=== PATIENT | female | born 1940 | race Asian ===

== ENCOUNTER 2019-02-28 15:18 | Inpatient (IN) | payer MEDICARE, OTHER ==
[2019-02-28] MEDS ORDERED: Acetaminophen 500 MG TAB PO PRN (22:16)
--- NOTE | 2019-03-01 07:23 | Psychiatric Evaluation ---
DATE OF SERVICE: 02/28/2019 PSYCHIATRIC INITIAL EVALUATION AND MENTAL STATUS EXAM AGE: 78. SEX: Female. PHYSICIAN: Dr. Cabrera. CHIEF COMPLAINT: Aggressive behavior and hallucinations. HISTORY OF PRESENT ILLNESS: The patient is a 78-year-old female who was admitted under my care in September of this year and has been followed in [facility]. The patient has been extremely agitated and has been verbally abusive to staff and striking out at staff and peers. The patient also has been actively hallucinating and has been hearing voices. Also, patient has not been able to follow directions. The patient was transferred to the hospital. The patient is still agitated and in irritable mood. The patient also has been restless and has been having difficulty following directions because of her paranoia. PAST PSYCHIATRIC HISTORY: The patient has history of dementia and psychosis as well as history of depression. PAST MEDICAL HISTORY: The patient has history of hypertension and hyperlipidemia. SOCIAL HISTORY: The patient lives in [facility]. The patient does not have history of alcohol or any street drug use. ALLERGIES: No known allergies. MENTAL STATUS EXAMINATION: The patient appears her stated age. Anxious. Depressed mood. Angry and irritable. Confused. Disorganized thoughts. Thought processes are circumstantial with flight of ideas. The patient is actively hallucinating and responding to stimuli. The patient did not answer question regarding suicide or homicide. The patient is alert, but seems to be confused and disoriented to time, place and person. Unable to assess the rest of mental status exam because patient is agitated and confused. ASSESSMENT: Unspecified psychosis. SECONDARY DIAGNOSIS: Dementia, moderate to severe, with behavior disturbances and psychotic features. MEDICAL DIAGNOSES: 1. Hyperlipidemia. 2. Hypertension. 3. History of seizure disorder. TREATMENT PLAN: We will monitor patient's behavior and condition closely. We will start individual as well as milieu psychotherapy. We will monitor psychotropic medications. ESTIMATED LENGTH OF STAY: 5-7 days. PATIENT'S STRENGTHS AND WEAKNESSES: The patient's strength is not clear at this time except that she seems to be in relatively fair health. Weakness is her ineffective coping. AFTER DISCHARGE PLAN: Outpatient treatment and followup, will continue as an outpatient. CRITERIA FOR DISCHARGE: The patient will not be psychotic and will stabilize psychotropic medications and will establish outpatient treatment plans. [facility]# [id number]
[2019-03-01] MEDS ORDERED: Multivitamin w/ Minerals Tab PO SCH (09:00)
[2019-03-01] MEDS ORDERED: Levetiracetam 500 mg/5mL 5mL UDSyr *for ORAL USE ONLY PO SCH (09:00)
[2019-03-01] MEDS ORDERED: Acetaminophen 500 MG TAB PO PRN (09:45)
[2019-03-01] MEDS ORDERED: CITALOPRAM 10 MG PO SCH (10:00)
[2019-03-01] MEDS: Multivitamin w/ Minerals Tab PO SCH (10:28)
--- NOTE | 2019-03-01 14:19 | History and Physical ---
History of Present Illness - HPI Chief Complaint: Patient was brought into ER for evaluation due to Hallucinating and Aggressive behavior. HPI: Patient was admitted to [facility] for evaluation due to Hallucinating and Aggressive behavior. Patient has history of Seizure disorder, Dementia, Hypertension and Hyperlipidemia. Patient had a Psych consult and a complete workup was done. Patient was diagnosed with Unspecified psychosis. I will follow, treat and monitor patient. Patient will continue current treatment plan as ordered. 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 GI: Report: No Pertinent Hx Psych: Report: Other ([facility].) Musculoskeletal: Report: Weakness Rheumatologic: Report: No pertinent Hx Renal/: Report: No Pertinent Hx Endocrine: Report: No Pertinent Hx Dermatology: Report: No Pertinent Hx - Past Surgical History Past Surgical History: No pertinent Hx Family Medical History - Family Member Mother History Unknown: Yes Ethnicity: Non- Living Status: Unknown Hx Family Cancer: No Hx Family Coronary Artery Disease: No Hx Family Congestive Heart Failure: No Hx Family Hypertension: No Hx Family Stroke: No Hx Family Diabetes: No Hx Family Seizures: No Hx Family Dementia: No Hx Family AIDS: No Hx Family HIV: No Hx Family COPD: No Hx Family Hepatitis: No Hx Family Psychiatric Problems: No Hx Family Tuberculosis: No Social History Smoke: No Alcohol: None Drugs: None Lives: Custodial Domestic Violence: Negative Health Maintenance Health Maintenance: Other (please see chart.) - Medications Home Medications: Home Medication Medication Instructions Recorded Type Acetaminophen [Tylenol Extra 500 mg PO Q4H PRN tab 10/04/18 Rx Strength] Atorvastatin Calcium [Lipitor] 40 mg PO HS tab 10/04/18 Rx Citalopram Hydrobromide [celeXA] 10 mg PO DAILY tab 10/04/18 Rx Donepezil Hcl [Aricept] 10 mg PO HS tab 10/04/18 Rx Levetiracetam [Keppra*] 500 mg PO BID udc 10/04/18 Rx Memantine [Namenda] 5 mg PO DAILY tab 10/04/18 Rx QUEtiapine Fumarate [SEROquel] 200 mg PO HS tab 10/04/18 Rx amLODIPine Besylate [Norvasc*] 10 mg PO DAILY tab 10/04/18 Rx Multivitamin with Minerals 1 tab PO DAILY 02/28/19 History [Multivitamins with Minerals] QUEtiapine Fumarate [SEROquel] 75 mg PO BID 02/28/19 History Other Medications: Please see medication reconciliation sheet. - Allergies Allergies/Adverse Reactions: Allergies Allergy/AdvReac Type Severity Reaction Status Date / Time No Known Allergies Allergy Verified 02/28/19 21:37 Review of Systems - Review of Systems Review of Systems: Patient is very aggressive, delusional, needs close monitoring. Constitutional: Report: No Significant Eyes: Report: No Significant ENT: Report: No Significant Respiratory: Report: No Significant Cardiovascular: Report: No Significant Gastrointestinal: Report: No Significant Genitourinary: Report: No Significant Musculoskeletal: Report: No Significant Skin: Report: No Significant Neurological: Report: Weakness, Confusion, Seizures Physical Exam - Physical Exam HEENT: Report: Ears Nose Throat within normal limits Neck: Report: Within normal limits Cardiovascular Systems: Report: +s1/s2 noted Respiratory: Report: Breath Sounds are within normal limits Abdomen: Report: Non-tender to palpation Back: Report: Inspection of back is within normal limits. Extremities: Report: Non-tender to palpation. Skin: Report: Color of skin is within normal limits Neuro/Psych: Report: Other (Very confused and agitated.) - Lab Results All Lab Results last 24 hours: Please see results - Assessment Assessment: Unspecified psychosis. history of Seizure disorder. Dementia. Hypertension. History of Hyperlipidemia. - Plan Plan: Psych management as per Psych. Continue present meds as directed. Monitor diet and nutritional support. Supportive care. Monitor vitals and labs. Continue current treatment plan as ordered.
[2019-03-02] MEDS: Multivitamin w/ Minerals Tab PO SCH (09:36)
[2019-03-02] MEDS: CITALOPRAM 10 MG PO SCH (09:37)
--- NOTE | 2019-03-02 13:30 | Internal Medicine Prog Note ---
Internal Medicine Subjective - Subjective Service Date: 03/02/19 Patient seen and examined:: with staff Patient is:: awake Internal Medicine Objective - Physical Exam Vitals and I&O: Vital Signs Temp 97.2 F 03/02/19 07:03 Pulse 64 03/02/19 09:37 Resp 18 03/02/19 07:03 BP 135/71 03/02/19 09:37 Pulse Ox 96 03/02/19 07:03 Intake & Output 03/01/19 03/02/19 03/02/19 18:59 06:59 18:59 Intake Total 120 120 Balance 120 120 Weight (lbs) 114 lb Intake: Oral 120 120 Other: # Voids 2 2 2 # Bowel Movements 0 0 0 Active Medications: Current Medications Acetaminophen (Tylenol Extra Strength) 500 mg PO Q4H PRN PRN Reason: Severe Pain (Scale 7-10) Stop: 04/30/19 09:44 Amlodipine Besylate (Norvasc) 10 mg PO DAILY [facility] Stop: 04/30/19 09:59 Last Admin: 03/02/19 09:37 Dose: 10 mg Atorvastatin Calcium (Lipitor) 40 mg PO HS [facility]; Protocol Stop: 04/30/19 20:59 Last Admin: 03/01/19 20:37 Dose: 40 mg Donepezil HCl (Aricept) 10 mg PO [facility] Stop: 04/30/19 20:59 Last Admin: 03/01/19 20:38 Dose: 10 mg Levetiracetam (Keppra) 500 mg PO BID [facility] Stop: 04/30/19 09:59 Last Admin: 03/02/19 09:36 Dose: 500 mg Lorazepam (Ativan) 0.5 mg PO Q4H PRN PRN Reason: Anxiety Stop: 04/30/19 09:50 Memantine (Namenda) 5 mg PO DAILY [facility] Stop: 04/30/19 09:59 Last Admin: 03/02/19 09:36 Dose: 5 mg Miscellaneous (Misc Oral Tab) 1 tab PO DAILY [facility] Stop: 05/01/19 08:59 Last Admin: 03/02/19 09:37 Dose: 1 tab Quetiapine Fumarate (Seroquel) 100 mg PO BID [facility] Stop: 04/30/19 09:59 Last Admin: 03/02/19 09:36 Dose: 100 mg Quetiapine Fumarate (Seroquel) 200 mg PO HS [facility] Stop: 04/30/19 20:59 Last Admin: 03/01/19 20:38 Dose: 200 mg Zolpidem Tartrate (Ambien) 5 mg PO HS PRN PRN Reason: Insomnia Stop: 04/30/19 09:52 Last Admin: 03/01/19 20:38 Dose: 5 mg General: alert HEENT: NC/AT, PERRLA Neck: Supple Lungs: CTAB Cardiovascular: RRR, Normal S1, Normal S2, without murmur Abdomen: soft, non-tender, non-distended, positive bowel sound Extremities: excoriation Neurological: no change Internal Medicine Assmt/Plan - Assessment Assessment: Unspecified psychosis. history of Seizure disorder. Dementia. Hypertension. History of Hyperlipidemia. - Plan Plan: Psych management as per Psych. Continue present meds as directed. Monitor diet and nutritional support. Supportive care. Monitor vitals and labs. Continue current treatment plan as ordered.
--- NOTE | 2019-03-03 08:02 | Progress Notes ---
DATE: SUBJECTIVE: Chart was reviewed and the patient interviewed. Also discussed the patient's condition with the staff and reviewed records and labs. The patient continued to be confused and still forgetful. The patient also is still easily agitated and is still having episodes of irritability. She also forgetful and needs lots of redirections. The patient also during interview was sleeping with her sunglasses. Otherwise, the patient is compliant with taking her medications with no side effects of medications. ASSESSMENT: The patient is still confused and agitated. TREATMENT PLAN: Continue current treatment and medications and monitoring her behavior and continue to follow up. JOB# [id number]
[2019-03-03] MEDS: Multivitamin w/ Minerals Tab PO SCH (08:50)
[2019-03-03] MEDS: CITALOPRAM 10 MG PO SCH (08:50)
--- NOTE | 2019-03-03 10:54 | Internal Medicine Prog Note ---
Internal Medicine Subjective - Subjective Service Date: 03/03/19 Patient seen and examined:: with staff Patient is:: awake, verbal, agitated, confused Patient Complaints of:: other (Hx of Seizures.) Per staff patient has:: no adverse event, no episodes of fall Internal Medicine Objective - Physical Exam Vitals and I&O: Vital Signs Temp 97 F 03/03/19 06:36 Pulse 70 03/03/19 08:50 Resp 19 03/03/19 06:36 BP 127/77 03/03/19 08:50 Pulse Ox 98 03/03/19 06:36 Intake & Output 03/02/19 03/03/19 03/03/19 18:59 06:59 18:59 Intake Total 1320 120 Balance 1320 120 Intake: Oral 960 120 Other 360 Other: # Voids 3 2 # Bowel Movements 0 Active Medications: Current Medications Acetaminophen (Tylenol Extra Strength) 500 mg PO Q4H PRN PRN Reason: Severe Pain (Scale 7-10) Stop: 04/30/19 09:44 Amlodipine Besylate (Norvasc) 10 mg PO DAILY [facility] Stop: 04/30/19 09:59 Last Admin: 03/03/19 08:50 Dose: 10 mg Atorvastatin Calcium (Lipitor) [address] [facility]; Protocol Stop: 04/30/19 20:59 Last Admin: 03/02/19 20:42 Dose: 40 mg Donepezil HCl (Aricept) [address] [facility] Stop: 04/30/19 20:59 Last Admin: 03/02/19 20:43 Dose: 10 mg Levetiracetam (Keppra) 500 mg PO BID [facility] Stop: 04/30/19 09:59 Last Admin: 03/03/19 08:50 Dose: 500 mg Lorazepam (Ativan) 0.5 mg PO Q4H PRN PRN Reason: Anxiety Stop: 04/30/19 09:50 Memantine (Namenda) 5 mg PO DAILY [facility] Stop: 04/30/19 09:59 Last Admin: 03/03/19 08:49 Dose: 5 mg Miscellaneous (Misc Oral Tab) 1 tab PO DAILY [facility] Stop: 05/01/19 08:59 Last Admin: 03/03/19 08:50 Dose: 1 tab Quetiapine Fumarate (Seroquel) 100 mg PO BID [facility] Stop: 04/30/19 09:59 Last Admin: 03/03/19 08:50 Dose: 100 mg Quetiapine Fumarate (Seroquel) 200 mg PO HS [facility] Stop: 04/30/19 20:59 Last Admin: 03/02/19 20:44 Dose: 200 mg Zolpidem Tartrate (Ambien) 5 mg PO HS PRN PRN Reason: Insomnia Stop: 04/30/19 09:52 Last Admin: 03/02/19 20:44 Dose: 5 mg Physical Exam: Patient needs close monitoring, very aggressive and agitated, no new events reported. General: alert HEENT: NC/AT, PERRLA Neck: Supple Lungs: CTAB Cardiovascular: RRR, Normal S1, Normal S2, without murmur Abdomen: soft, non-tender, non-distended, positive bowel sound Extremities: excoriation Neurological: no change Internal Medicine Assmt/Plan - Assessment Assessment: Unspecified psychosis. history of Seizure disorder. Dementia. Hypertension. History of Hyperlipidemia. - Plan Plan: Psych management as per Psych. Continue present meds as directed. Monitor diet and nutritional support. Supportive care. Monitor vitals and labs. Continue current treatment plan as ordered.
--- NOTE | 2019-03-03 22:03 | Progress Notes ---
DATE: SUBJECTIVE: Chart was reviewed and the patient interviewed. Also discussed the patient's condition with the staff and reviewed records and labs. The patient is still confused and the patient is still interacting minimally with others. The patient also is still actively hallucinating and is still actively responding to stimuli. Also, easily agitated and easily irritable. The patient also is still forgetful and she still needs lots of redirections. On the other hand, the patient slept better and she is more cooperative with care. ASSESSMENT: The patient is still agitated and psychotic. TREATMENT PLAN: Continue to monitor her behavior and her condition closely. Also, continue adjusting psychotropic medications and work on behavioral modification. JOB# [id number]
[2019-03-04] MEDS: Multivitamin w/ Minerals Tab PO SCH (08:40)
--- NOTE | 2019-03-04 09:50 | Progress Notes ---
DATE: 03/04/2019 SUBJECTIVE: The patient was seen in her room. The patient is asleep, but easily arousable. The patient is very confused, easily gets frustrated and needs a lot of redirection, has episodes of behavioral outbursts. Otherwise, the patient is in no acute distress. OBJECTIVE: VITAL SIGNS: Temperature ____, heart rate 74, blood pressure 113/68, respirations 20, 97% on room air. HEENT: Head is atraumatic and normocephalic. Eyes: Bilateral conjunctivae are clear. Bilateral pupils are equal, round, reactive. NECK: Supple. No JVD. CARDIOVASCULAR: S1 and S2, without murmur. PULMONARY: Clear to auscultation. GASTROINTESTINAL: Soft and nontender without guarding. Positive bowel sounds. MUSCULOSKELETAL: No clubbing. No cyanosis noted. ASSESSMENT: 1. Dementia. 2. Hypertension. 3. Hyperlipidemia. 4. Seizure disorder. PLAN: We will keep the patient to Inpatient Psychiatric Unit. We will follow up with a psychiatrist to monitor the patient's condition and behavior. Put the patient on fall precaution. Treatment plans were discussed with the patient's nurse. Treatment plans were discussed with Dr. Conner. JOB# [id number]
[2019-03-04] MEDS: CITALOPRAM 10 MG PO SCH (10:15)
--- NOTE | 2019-03-04 19:58 | Progress Notes ---
DATE: SUBJECTIVE: Chart was reviewed and the patient interviewed. Also discussed the patient's condition with the staff and reviewed records and labs. The patient is still confused and is still forgetful. The patient also is still easily irritable and is still easily agitated. She also is still actively hallucinating and is talking to herself in Tagalog language. She also is still having mood swings and still needs lots of redirections. Otherwise, the patient continued to comply with taking her medications with no side effects of medications. ASSESSMENT: The patient is still psychotic and agitated. TREATMENT PLAN: We will continue Seroquel and Aricept at the same dose, but would increase Namenda to 5 mg twice a day and we will continue to follow up her behavior and her condition closely. JOB# [id number]
[2019-03-05] MEDS: Multivitamin w/ Minerals Tab PO SCH (08:27)
[2019-03-05] MEDS: CITALOPRAM 10 MG PO SCH (08:27)
--- NOTE | 2019-03-05 11:31 | Internal Medicine Prog Note ---
Internal Medicine Subjective - Subjective Patient is:: awake, in bed, agitated, confused Patient Complaints of:: other (Hx of Seizures.) Per staff patient has:: no adverse event, no episodes of fall Internal Medicine Objective - Physical Exam Vitals and I&O: Vital Signs Temp 97.6 F 03/05/19 06:11 Pulse 67 03/05/19 06:11 Resp 18 03/05/19 06:11 BP 105/62 03/05/19 06:11 Pulse Ox 94 03/05/19 06:11 Intake & Output 03/04/19 03/05/19 03/05/19 18:59 06:59 18:59 Intake Total 850 240 Balance 850 240 Intake: Oral 850 240 Other: # Voids 3 1 # Bowel Movements 1 Active Medications: Current Medications Acetaminophen (Tylenol Extra Strength) 500 mg PO Q4H PRN PRN Reason: Severe Pain (Scale 7-10) Stop: 04/30/19 09:44 Amlodipine Besylate (Norvasc) 10 mg PO DAILY [facility] Stop: 04/30/19 09:59 Last Admin: 03/05/19 08:28 Dose: Not Given Atorvastatin Calcium (Lipitor) 40 mg PO [facility]; Protocol Stop: 04/30/19 20:59 Last Admin: 03/04/19 20:44 Dose: 40 mg Donepezil HCl (Aricept) 10 mg PO [facility] Stop: 04/30/19 20:59 Last Admin: 03/04/19 20:44 Dose: 10 mg Levetiracetam (Keppra) 500 mg PO BID [facility] Stop: 04/30/19 09:59 Last Admin: 03/05/19 08:27 Dose: 500 mg Lorazepam (Ativan) 0.5 mg PO Q4H PRN PRN Reason: Anxiety Stop: 04/30/19 09:50 Memantine (Namenda) 5 mg PO BID [facility] Stop: 05/03/19 08:59 Last Admin: 03/05/19 08:27 Dose: 5 mg Miscellaneous (Misc Oral Tab) 1 tab PO DAILY [facility] Stop: 05/01/19 08:59 Last Admin: 03/05/19 08:27 Dose: 1 tab Quetiapine Fumarate (Seroquel) 100 mg PO BID [facility] Stop: 04/30/19 09:59 Last Admin: 03/05/19 08:27 Dose: 100 mg Quetiapine Fumarate (Seroquel) 200 mg PO HS [facility] Stop: 04/30/19 20:59 Last Admin: 03/04/19 20:44 Dose: 200 mg Zolpidem Tartrate (Ambien) 5 mg PO HS PRN PRN Reason: Insomnia Stop: 04/30/19 09:52 Last Admin: 03/02/19 20:44 Dose: 5 mg General: demented, NAD HEENT: NC/AT, PERRLA Neck: Supple, No JVD Lungs: other (no acute respiratory distress) Cardiovascular: RRR Abdomen: soft, non-tender, non-distended Extremities: excoriation Neurological: no change Internal Medicine Assmt/Plan - Assessment Assessment: Dementia Seizure disorder HTN Hyperlipidemia - Plan Plan: Continue current treatment plan. Monitor Labs. Continue current medications Continue to monitor VS Monitor Diet/Nutritional support. Psych management per Psychiatry. Pain Management. PT/OT prn Safety precaution, Fall precaution, frequent nursing round. Supportive care. Continue collaborating with consulting specialists, case management and nursing team Nutritional Asmnt/Malnutr-PDOC - Dietary Evaluation Malnutrition Findings (Please click <Entered> for more info): Nutritional Asmnt/Malnutrition Start: 03/04/19 09: 31 Text: Status: Complete Freq: Protocol: Document 03/04/19 09:32 JULIANNA (Rec: 03/04/19 10:03 JULIANNA RUSSELL- [id number]) Nutritional Asmnt/Malnutrition Patient General Information Nutritional Screening Low Risk Diagnosis Psychosis Pertinent Medical Hx/Surgical Hx psychosis, non traumatic subdural hemorrhage, seizures, dementia, hypertension, hyperlipidemia, anxiety disorder, schizoaffective disorder, and major depressive disorder. Subjective Information Patient tolerating current diet, no pmhx of diabetes noted. Current Diet Order/ Nutrition Support Soft, 60gm CCHO Patient / S.O Not Indicated Pertinent Medications Lipitor Nutritional Hx/Data Height 4 ft 11 in Height (Calculated Centimeters) 149.9 Current Weight (lbs) 114 lb Weight (Calculated Kilograms) 51.7 Weight (Calculated Grams) 39454.5 [place] Body Weight 97.5 % [place] Body Weight 116 Body Mass Index (BMI) 23.0 Recent Weight Change No Weight Status Approriate GI Symptoms GI Symptoms None Last BM none noted Difficult in: None Food Allergies No Cultural/Ethnic/Church Belief none indicated Usual diet at home unknown Skin Integrity/Comment: Kg Jay Current %PO Fair (50-74%) Estimated Nutritional Goals BEE in Kcals: Using Current wt Calories/Kcals/Kg 51.8kg CBW 25-30 kcal/kg Kcals Calculated ~1869-0930 kcal/day Protein: Using Current wt Protein g/k-1.2gm/kg Protein Calculated 50-60gm/day Fluid: ml ~6877-8460 ml/day Nutritional Problem No current Nutrition Prob Problem no nutritino diagnosis at this time Intervention/Recommendation Comments 1. Continue soft diet as tolerated by patient. 2. No noted hx of diabetes in H&P and no POC glucose levels noted. Consider checking glucose levels to determine need for 60gm CCHO diet. Expected Outcomes/Goals Expected Outcomes/Goals Oral intake 75% of meals, weight stable, nutrition related labs WNL F/U LR 03/11
[2019-03-06] MEDS: CITALOPRAM 10 MG PO SCH (09:22)
[2019-03-06] MEDS: Multivitamin w/ Minerals Tab PO SCH (09:22)
--- NOTE | 2019-03-06 12:48 | Internal Medicine Prog Note ---
Internal Medicine Subjective - Subjective Service Date: 03/06/19 Patient seen and examined:: with staff, chart reviewed Patient is:: awake, in bed, agitated, confused Patient Complaints of:: other (Hx of Seizures.) Per staff patient has:: no adverse event, no episodes of fall, agitated Internal Medicine Objective - Physical Exam Vitals and I&O: Vital Signs Temp 97 F 03/06/19 06:20 Pulse 65 03/06/19 09:23 Resp 19 03/06/19 08:00 BP 118/66 03/06/19 09:23 Pulse Ox 96 03/06/19 06:20 Intake & Output 03/05/19 03/06/19 03/06/19 18:59 06:59 18:59 Intake Total 850 240 Balance 850 240 Intake: Oral 850 240 Other: # Voids 3 2 # Bowel Movements 1 Active Medications: Current Medications Acetaminophen (Tylenol Extra Strength) 500 mg PO Q4H PRN PRN Reason: Severe Pain (Scale 7-10) Stop: 04/30/19 09:44 Amlodipine Besylate (Norvasc) 10 mg PO DAILY [facility] Stop: 04/30/19 09:59 Last Admin: 03/06/19 09:23 Dose: 10 mg Atorvastatin Calcium (Lipitor) 40 mg PO HS [facility]; Protocol Stop: 04/30/19 20:59 Last Admin: 03/05/19 20:32 Dose: 40 mg Donepezil HCl (Aricept) 10 mg PO HS [facility] Stop: 04/30/19 20:59 Last Admin: 03/05/19 20:32 Dose: 10 mg Levetiracetam (Keppra) 500 mg PO BID [facility] Stop: 04/30/19 09:59 Last Admin: 03/06/19 09:23 Dose: 500 mg Lorazepam (Ativan) 0.5 mg PO Q4H PRN PRN Reason: Anxiety Stop: 04/30/19 09:50 Memantine (Namenda) 5 mg PO BID [facility] Stop: 05/03/19 08:59 Last Admin: 03/06/19 09:23 Dose: 5 mg Miscellaneous (Misc Oral Tab) 1 tab PO DAILY [facility] Stop: 05/01/19 08:59 Last Admin: 03/06/19 09:22 Dose: 1 tab Quetiapine Fumarate (Seroquel) 100 mg PO BID [facility] Stop: 04/30/19 09:59 Last Admin: 03/06/19 09:23 Dose: 100 mg Quetiapine Fumarate (Seroquel) 200 mg PO HS [facility] Stop: 04/30/19 20:59 Last Admin: 03/05/19 20:32 Dose: 200 mg Zolpidem Tartrate (Ambien) 5 mg PO HS PRN PRN Reason: Insomnia Stop: 04/30/19 09:52 Last Admin: 03/02/19 20:44 Dose: 5 mg Physical Exam: Patient needs close monitoring, having mood swings, psychotic and agitated. General: demented, NAD HEENT: NC/AT, PERRLA Neck: Supple, No JVD Lungs: other (no acute respiratory distress) Cardiovascular: RRR Abdomen: soft, non-tender, non-distended Extremities: excoriation Neurological: no change Internal Medicine Assmt/Plan - Assessment Assessment: Unspecified psychosis. history of Seizure disorder. Dementia. Hypertension. History of Hyperlipidemia. - Plan Plan: Psych management as per Psych. Continue present meds as directed. Monitor diet and nutritional support. Supportive care. Monitor vitals and labs. Continue current treatment plan as ordered. Nutritional Asmnt/Malnutr-PDOC - Dietary Evaluation Malnutrition Findings (Please click <Entered> for more info): Nutritional Asmnt/Malnutrition Start: 03/04/19 09: 31 Text: Status: Complete Freq: Protocol: Document 03/04/19 09:32 JULIANNA (Rec: 03/04/19 10:03 JULIANNA RUSSELL- FNS1) Nutritional Asmnt/Malnutrition Patient General Information Nutritional Screening Low Risk Diagnosis Psychosis Pertinent Medical Hx/Surgical Hx psychosis, non traumatic subdural hemorrhage, seizures, dementia, hypertension, hyperlipidemia, anxiety disorder, schizoaffective disorder, and major depressive disorder. Subjective Information Patient tolerating current diet, no pmhx of diabetes noted. Current Diet Order/ Nutrition Support Soft, 60gm CCHO Patient / S.O Not Indicated Pertinent Medications Lipitor Nutritional Hx/Data Height 1.5 m Height (Calculated Centimeters) 149.9 Current Weight (lbs) 51.71 kg Weight (Calculated Kilograms) 51.7 Weight (Calculated Grams) 17207.5 [place] Body Weight 97.5 % [place] Body Weight 116 Body Mass Index (BMI) 23.0 Recent Weight Change No Weight Status Approriate GI Symptoms GI Symptoms None Last BM none noted Difficult in: None Food Allergies No Cultural/Ethnic/Faith Belief none indicated Usual diet at home unknown Skin Integrity/Comment: Kg 19 Current %PO Fair (50-74%) Estimated Nutritional Goals BEE in Kcals: Using Current wt Calories/Kcals/Kg 51.8kg CBW 25-30 kcal/kg Kcals Calculated ~3771-8224 kcal/day Protein: Using Current wt Protein g/k-1.2gm/kg Protein Calculated 50-60gm/day Fluid: ml ~5564-3021 ml/day Nutritional Problem No current Nutrition Prob Problem no nutritino diagnosis at this time Intervention/Recommendation Comments 1. Continue soft diet as tolerated by patient. 2. No noted hx of diabetes in H&P and no POC glucose levels noted. Consider checking glucose levels to determine need for 60gm CCHO diet. Expected Outcomes/Goals Expected Outcomes/Goals Oral intake 75% of meals, weight stable, nutrition related labs WNL F/U LR 03/11
[2019-03-07] MEDS: Multivitamin w/ Minerals Tab PO SCH (09:52)
[2019-03-07] MEDS: CITALOPRAM 10 MG PO SCH (09:53)
--- NOTE | 2019-03-08 08:48 | Internal Medicine Prog Note ---
Internal Medicine Subjective - Subjective Patient is:: asleep, in bed, confused Patient Complaints of:: other (Hx of Seizures.) Per staff patient has:: no adverse event, no episodes of fall, agitated Internal Medicine Objective - Physical Exam Vitals and I&O: Vital Signs Temp 97.9 F 03/08/19 05:44 Pulse 68 03/08/19 05:44 Resp 18 03/08/19 05:44 BP 127/72 03/08/19 05:44 Pulse Ox 95 03/08/19 05:44 Intake & Output 03/07/19 03/08/19 03/08/19 18:59 06:59 18:59 Intake Total 120 Balance 120 Intake: Oral 120 Other: # Voids 2 3 # Bowel Movements 0 0 Active Medications: Current Medications Acetaminophen (Tylenol Extra Strength) 500 mg PO Q4H PRN PRN Reason: Severe Pain (Scale 7-10) Stop: 04/30/19 09:44 Amlodipine Besylate (Norvasc) 10 mg PO DAILY [facility] Stop: 04/30/19 09:59 Last Admin: 03/07/19 09:52 Dose: 10 mg Atorvastatin Calcium (Lipitor) 40 mg PO HS [facility]; Protocol Stop: 04/30/19 20:59 Last Admin: 03/07/19 20:40 Dose: 40 mg Donepezil HCl (Aricept) 10 mg PO [facility] Stop: 04/30/19 20:59 Last Admin: 03/07/19 20:40 Dose: 10 mg Levetiracetam (Keppra) 500 mg PO BID [facility] Stop: 04/30/19 09:59 Last Admin: 03/07/19 17:20 Dose: 500 mg Lorazepam (Ativan) 0.5 mg PO Q4H PRN PRN Reason: Anxiety Stop: 04/30/19 09:50 Last Admin: 03/08/19 03:14 Dose: 0.5 mg Memantine (Namenda) 10 mg PO BID [facility] Stop: 05/06/19 08:59 Last Admin: 03/07/19 17:20 Dose: 10 mg Miscellaneous (Misc Oral Tab) 1 tab PO DAILY [facility] Stop: 05/01/19 08:59 Last Admin: 03/07/19 09:53 Dose: 1 tab Quetiapine Fumarate (Seroquel) 200 mg PO [facility] Stop: 04/30/19 20:59 Last Admin: 03/07/19 20:40 Dose: 200 mg Quetiapine Fumarate 100 mg/ (Quetiapine Fumarate 25 mg) 125 mg PO BID [facility] Stop: 05/06/19 08:59 Last Admin: 03/07/19 17:21 Dose: 125 mg Zolpidem Tartrate (Ambien) 5 mg PO HS PRN PRN Reason: Insomnia Stop: 04/30/19 09:52 Last Admin: 03/07/19 20:41 Dose: 5 mg General: demented, NAD HEENT: NC/AT, PERRLA Neck: Supple, No JVD Lungs: other (no acute respiratory distress) Cardiovascular: RRR Abdomen: soft, non-tender, non-distended Extremities: excoriation Neurological: no change Internal Medicine Assmt/Plan - Assessment Assessment: Dementia Unspecified psychosis. Seizure disorder HTN Hyperlipidemia - Plan Plan: Continue current treatment plan. Monitor Labs. Continue current medications Continue to monitor VS Monitor Diet/Nutritional support. Psych management per Psychiatry. Pain Management. PT/OT prn Safety precaution, Fall precaution, frequent nursing round. Supportive care. Continue collaborating with consulting specialists, case management and nursing team Nutritional Asmnt/Malnutr-PDOC - Dietary Evaluation Malnutrition Findings (Please click <Entered> for more info): Nutritional Asmnt/Malnutrition Start: 03/04/19 09: 31 Text: Status: Complete Freq: Protocol: Document 03/04/19 09:32 JULIANNA (Rec: 03/04/19 10:03 JULIANNA RUSSELL- FNS1) Nutritional Asmnt/Malnutrition Patient General Information Nutritional Screening Low Risk Diagnosis Psychosis Pertinent Medical Hx/Surgical Hx psychosis, non traumatic subdural hemorrhage, seizures, dementia, hypertension, hyperlipidemia, anxiety disorder, schizoaffective disorder, and major depressive disorder. Subjective Information Patient tolerating current diet, no pmhx of diabetes noted. Current Diet Order/ Nutrition Support Soft, 60gm CCHO Patient / S.O Not Indicated Pertinent Medications Lipitor Nutritional Hx/Data Height 4 ft 11 in Height (Calculated Centimeters) 149.9 Current Weight (lbs) 114 lb Weight (Calculated Kilograms) 51.7 Weight (Calculated Grams) 64536.5 [place] Body Weight 97.5 % [place] Body Weight 116 Body Mass Index (BMI) 23.0 Recent Weight Change No Weight Status Approriate GI Symptoms GI Symptoms None Last BM none noted Difficult in: None Food Allergies No Cultural/Ethnic/Nondenominational Belief none indicated Usual diet at home unknown Skin Integrity/Comment: Kg 19 Current %PO Fair (50-74%) Estimated Nutritional Goals BEE in Kcals: Using Current wt Calories/Kcals/Kg 51.8kg CBW 25-30 kcal/kg Kcals Calculated ~9508-4281 kcal/day Protein: Using Current wt Protein g/k-1.2gm/kg Protein Calculated 50-60gm/day Fluid: ml ~0539-5738 ml/day Nutritional Problem No current Nutrition Prob Problem no nutritino diagnosis at this time Intervention/Recommendation Comments 1. Continue soft diet as tolerated by patient. 2. No noted hx of diabetes in H&P and no POC glucose levels noted. Consider checking glucose levels to determine need for 60gm CCHO diet. Expected Outcomes/Goals Expected Outcomes/Goals Oral intake 75% of meals, weight stable, nutrition related labs WNL F/U LR 03/11
[2019-03-08] MEDS: CITALOPRAM 10 MG PO SCH (09:06)
[2019-03-08] MEDS: Multivitamin w/ Minerals Tab PO SCH (09:06)
--- NOTE | 2019-03-08 13:56 | Internal Medicine Prog Note ---
Internal Medicine Subjective - Subjective Service Date: 03/08/19 Patient seen and examined:: with staff Patient is:: asleep, in bed, confused Patient Complaints of:: other (Hx of Seizures.) Per staff patient has:: no adverse event, no episodes of fall, agitated Internal Medicine Objective - Physical Exam Vitals and I&O: Vital Signs Temp 97.9 F 03/08/19 05:44 Pulse 68 03/08/19 09:06 Resp 17 03/08/19 08:00 BP 127/72 03/08/19 09:06 Pulse Ox 95 03/08/19 05:44 Intake & Output 03/07/19 03/08/19 03/08/19 18:59 06:59 18:59 Intake Total 120 Balance 120 Intake: Oral 120 Other: # Voids 2 3 # Bowel Movements 0 0 Active Medications: Current Medications Acetaminophen (Tylenol Extra Strength) 500 mg PO Q4H PRN PRN Reason: Severe Pain (Scale 7-10) Stop: 04/30/19 09:44 Amlodipine Besylate (Norvasc) 10 mg PO DAILY [facility] Stop: 04/30/19 09:59 Last Admin: 03/08/19 09:06 Dose: 10 mg Atorvastatin Calcium (Lipitor) 40 mg PO HS [facility]; Protocol Stop: 04/30/19 20:59 Last Admin: 03/07/19 20:40 Dose: 40 mg Donepezil HCl (Aricept) 10 mg PO HS [facility] Stop: 04/30/19 20:59 Last Admin: 03/07/19 20:40 Dose: 10 mg Levetiracetam (Keppra) 500 mg PO BID [facility] Stop: 04/30/19 09:59 Last Admin: 03/08/19 09:06 Dose: 500 mg Lorazepam (Ativan) 0.5 mg PO Q4H PRN PRN Reason: Anxiety Stop: 04/30/19 09:50 Last Admin: 03/08/19 03:14 Dose: 0.5 mg Memantine (Namenda) 10 mg PO BID [facility] Stop: 05/06/19 08:59 Last Admin: 03/08/19 09:05 Dose: 10 mg Miscellaneous (Misc Oral Tab) 1 tab PO DAILY [facility] Stop: 05/01/19 08:59 Last Admin: 03/08/19 09:06 Dose: 1 tab Quetiapine Fumarate (Seroquel) 200 mg PO HS [facility] Stop: 04/30/19 20:59 Last Admin: 03/07/19 20:40 Dose: 200 mg Quetiapine Fumarate 100 mg/ (Quetiapine Fumarate 25 mg) 125 mg PO BID [facility] Stop: 05/06/19 08:59 Last Admin: 03/08/19 09:06 Dose: 125 mg Zolpidem Tartrate (Ambien) 5 mg PO HS PRN PRN Reason: Insomnia Stop: 04/30/19 09:52 Last Admin: 03/07/19 20:41 Dose: 5 mg Physical Exam: Patient needs close monitoring, easily frustrated and agitated. General: demented, NAD HEENT: NC/AT, PERRLA Neck: Supple, No JVD Lungs: other (no acute respiratory distress) Cardiovascular: RRR Abdomen: soft, non-tender, non-distended Extremities: excoriation Neurological: no change Internal Medicine Assmt/Plan - Assessment Assessment: Unspecified psychosis. history of Seizure disorder. Dementia. Hypertension. History of Hyperlipidemia. - Plan Plan: Psych management as per Psych. Continue present meds as directed. Monitor diet and nutritional support. Supportive care. Monitor vitals and labs. Continue current treatment plan as ordered. Nutritional Asmnt/Malnutr-PDOC - Dietary Evaluation Malnutrition Findings (Please click <Entered> for more info): Nutritional Asmnt/Malnutrition Start: 03/04/19 09: 31 Text: Status: Complete Freq: Protocol: Document 03/04/19 09:32 JULIANNA (Rec: 03/04/19 10:03 JULIANNA RUSSELL- FNS1) Nutritional Asmnt/Malnutrition Patient General Information Nutritional Screening Low Risk Diagnosis Psychosis Pertinent Medical Hx/Surgical Hx psychosis, non traumatic subdural hemorrhage, seizures, dementia, hypertension, hyperlipidemia, anxiety disorder, schizoaffective disorder, and major depressive disorder. Subjective Information Patient tolerating current diet, no pmhx of diabetes noted. Current Diet Order/ Nutrition Support Soft, 60gm CCHO Patient / S.O Not Indicated Pertinent Medications Lipitor Nutritional Hx/Data Height 1.5 m Height (Calculated Centimeters) 149.9 Current Weight (lbs) 51.71 kg Weight (Calculated Kilograms) 51.7 Weight (Calculated Grams) 75560.5 [place] Body Weight 97.5 % [place] Body Weight 116 Body Mass Index (BMI) 23.0 Recent Weight Change No Weight Status Approriate GI Symptoms GI Symptoms None Last BM none noted Difficult in: None Food Allergies No Cultural/Ethnic/Tenriism Belief none indicated Usual diet at home unknown Skin Integrity/Comment: Kg 19 Current %PO Fair (50-74%) Estimated Nutritional Goals BEE in Kcals: Using Current wt Calories/Kcals/Kg 51.8kg CBW 25-30 kcal/kg Kcals Calculated ~8212-9274 kcal/day Protein: Using Current wt Protein g/k-1.2gm/kg Protein Calculated 50-60gm/day Fluid: ml ~2869-2033 ml/day Nutritional Problem No current Nutrition Prob Problem no nutritino diagnosis at this time Intervention/Recommendation Comments 1. Continue soft diet as tolerated by patient. 2. No noted hx of diabetes in H&P and no POC glucose levels noted. Consider checking glucose levels to determine need for 60gm CCHO diet. Expected Outcomes/Goals Expected Outcomes/Goals Oral intake 75% of meals, weight stable, nutrition related labs WNL F/U LR 03/11
--- NOTE | 2019-03-08 14:03 | Internal Medicine Prog Note ---
Internal Medicine Subjective - Subjective Service Date: 03/08/19 Patient is:: asleep, in bed, confused Patient Complaints of:: other (Hx of Seizures.) Per staff patient has:: no adverse event, no episodes of fall, agitated Internal Medicine Objective - Physical Exam Vitals and I&O: Vital Signs Temp 97.9 F 03/08/19 05:44 Pulse 68 03/08/19 09:06 Resp 17 03/08/19 08:00 BP 127/72 03/08/19 09:06 Pulse Ox 95 03/08/19 05:44 Intake & Output 03/07/19 03/08/19 03/08/19 18:59 06:59 18:59 Intake Total 120 Balance 120 Intake: Oral 120 Other: # Voids 2 3 # Bowel Movements 0 0 Active Medications: Current Medications Acetaminophen (Tylenol Extra Strength) 500 mg PO Q4H PRN PRN Reason: Severe Pain (Scale 7-10) Stop: 04/30/19 09:44 Amlodipine Besylate (Norvasc) 10 mg PO DAILY [facility] Stop: 04/30/19 09:59 Last Admin: 03/08/19 09:06 Dose: 10 mg Atorvastatin Calcium (Lipitor) 40 mg PO HS [facility]; Protocol Stop: 04/30/19 20:59 Last Admin: 03/07/19 20:40 Dose: 40 mg Donepezil HCl (Aricept) 10 mg PO [facility] Stop: 04/30/19 20:59 Last Admin: 03/07/19 20:40 Dose: 10 mg Levetiracetam (Keppra) 500 mg PO BID [facility] Stop: 04/30/19 09:59 Last Admin: 03/08/19 09:06 Dose: 500 mg Lorazepam (Ativan) 0.5 mg PO Q4H PRN PRN Reason: Anxiety Stop: 04/30/19 09:50 Last Admin: 03/08/19 03:14 Dose: 0.5 mg Memantine (Namenda) 10 mg PO BID [facility] Stop: 05/06/19 08:59 Last Admin: 03/08/19 09:05 Dose: 10 mg Miscellaneous (Misc Oral Tab) 1 tab PO DAILY [facility] Stop: 05/01/19 08:59 Last Admin: 03/08/19 09:06 Dose: 1 tab Quetiapine Fumarate (Seroquel) 200 mg PO HS [facility] Stop: 04/30/19 20:59 Last Admin: 03/07/19 20:40 Dose: 200 mg Quetiapine Fumarate 100 mg/ (Quetiapine Fumarate 25 mg) 125 mg PO BID [facility] Stop: 05/06/19 08:59 Last Admin: 03/08/19 09:06 Dose: 125 mg Zolpidem Tartrate (Ambien) 5 mg PO HS PRN PRN Reason: Insomnia Stop: 04/30/19 09:52 Last Admin: 03/07/19 20:41 Dose: 5 mg General: demented, NAD HEENT: NC/AT, PERRLA Neck: Supple, No JVD Lungs: other (no acute respiratory distress) Cardiovascular: RRR Abdomen: soft, non-tender, non-distended Extremities: excoriation Neurological: no change Internal Medicine Assmt/Plan - Assessment Assessment: Unspecified psychosis. history of Seizure disorder. Dementia. Hypertension. History of Hyperlipidemia. - Plan Plan: Psych management as per Psych. Continue present meds as directed. Monitor diet and nutritional support. Supportive care. Monitor vitals and labs. Continue current treatment plan as ordered. Nutritional Asmnt/Malnutr-PDOC - Dietary Evaluation Malnutrition Findings (Please click <Entered> for more info): Nutritional Asmnt/Malnutrition Start: 03/04/19 09: 31 Text: Status: Complete Freq: Protocol: Document 03/04/19 09:32 JULIANNA (Rec: 03/04/19 10:03 JULIANNA RUSSELL- FNS1) Nutritional Asmnt/Malnutrition Patient General Information Nutritional Screening Low Risk Diagnosis Psychosis Pertinent Medical Hx/Surgical Hx psychosis, non traumatic subdural hemorrhage, seizures, dementia, hypertension, hyperlipidemia, anxiety disorder, schizoaffective disorder, and major depressive disorder. Subjective Information Patient tolerating current diet, no pmhx of diabetes noted. Current Diet Order/ Nutrition Support Soft, 60gm CCHO Patient / S.O Not Indicated Pertinent Medications Lipitor Nutritional Hx/Data Height 4 ft 11 in Height (Calculated Centimeters) 149.9 Current Weight (lbs) 114 lb Weight (Calculated Kilograms) 51.7 Weight (Calculated Grams) 61258.5 [place] Body Weight 97.5 % [place] Body Weight 116 Body Mass Index (BMI) 23.0 Recent Weight Change No Weight Status Approriate GI Symptoms GI Symptoms None Last BM none noted Difficult in: None Food Allergies No Cultural/Ethnic/Yazidi Belief none indicated Usual diet at home unknown Skin Integrity/Comment: Kg [place] Current %PO Fair (50-74%) Estimated Nutritional Goals BEE in Kcals: Using Current wt Calories/Kcals/Kg 51.8kg CBW 25-30 kcal/kg Kcals Calculated ~0858-0266 kcal/day Protein: Using Current wt Protein g/k-1.2gm/kg Protein Calculated 50-60gm/day Fluid: ml ~5798-0717 ml/day Nutritional Problem No current Nutrition Prob Problem no nutritino diagnosis at this time Intervention/Recommendation Comments 1. Continue soft diet as tolerated by patient. 2. No noted hx of diabetes in H&P and no POC glucose levels noted. Consider checking glucose levels to determine need for 60gm CCHO diet. Expected Outcomes/Goals Expected Outcomes/Goals Oral intake 75% of meals, weight stable, nutrition related labs WNL F/U LR 03/11
[2019-03-09] MEDS: CITALOPRAM 10 MG PO SCH (09:35)
[2019-03-09] MEDS: Multivitamin w/ Minerals Tab PO SCH (09:35)
--- NOTE | 2019-03-09 17:54 | Internal Medicine Prog Note ---
Internal Medicine Subjective - Subjective Service Date: 03/09/19 Patient is:: asleep, in bed, confused Patient Complaints of:: other (Hx of Seizures.) Per staff patient has:: no adverse event, no episodes of fall, agitated Internal Medicine Objective - Physical Exam Vitals and I&O: Vital Signs Temp 97.7 F 03/09/19 14:00 Pulse 81 03/09/19 14:00 Resp 20 03/09/19 14:00 BP 95/63 03/09/19 14:00 Pulse Ox 97 03/09/19 14:00 Intake & Output 03/08/19 03/09/19 03/09/19 18:59 06:59 18:59 Intake Total 1200 120 Balance 1200 120 Intake: Oral 1200 120 Other: # Voids 2 # Bowel Movements 1 Active Medications: Current Medications Acetaminophen (Tylenol Extra Strength) 500 mg PO Q4H PRN PRN Reason: Severe Pain (Scale 7-10) Stop: 04/30/19 09:44 Amlodipine Besylate (Norvasc) 10 mg PO DAILY [facility] Stop: 04/30/19 09:59 Last Admin: 03/09/19 09:34 Dose: Not Given Atorvastatin Calcium (Lipitor) 40 mg PO [facility]; Protocol Stop: 04/30/19 20:59 Last Admin: 03/08/19 21:00 Dose: 40 mg Donepezil HCl (Aricept) 10 mg PO [facility] Stop: 04/30/19 20:59 Last Admin: 03/08/19 21:00 Dose: 10 mg Levetiracetam (Keppra) 500 mg PO BID [facility] Stop: 04/30/19 09:59 Last Admin: 03/09/19 16:44 Dose: 500 mg Memantine (Namenda) 10 mg PO BID [facility] Stop: 05/06/19 08:59 Last Admin: 03/09/19 16:44 Dose: 10 mg Miscellaneous (Misc Oral Tab) 1 tab PO DAILY [facility] Stop: 05/01/19 08:59 Last Admin: 03/09/19 09:35 Dose: 1 tab Quetiapine Fumarate (Seroquel) 200 mg PO [facility] Stop: 04/30/19 20:59 Last Admin: 03/08/19 21:00 Dose: 200 mg Quetiapine Fumarate 100 mg/ (Quetiapine Fumarate 25 mg) 125 mg PO BID [facility] Stop: 05/06/19 08:59 Last Admin: 03/09/19 16:44 Dose: 125 mg General: demented, NAD HEENT: NC/AT, PERRLA Neck: Supple, No JVD Lungs: other (no acute respiratory distress) Cardiovascular: RRR Abdomen: soft, non-tender, non-distended Extremities: excoriation Neurological: no change Internal Medicine Assmt/Plan - Assessment Assessment: Unspecified psychosis. history of Seizure disorder. Dementia. Hypertension. History of Hyperlipidemia. - Plan Plan: Psych management as per Psych. Continue present meds as directed. Monitor diet and nutritional support. Supportive care. Monitor vitals and labs. Continue current treatment plan as ordered. Nutritional Asmnt/Malnutr-PDOC - Dietary Evaluation Malnutrition Findings (Please click <Entered> for more info): Nutritional Asmnt/Malnutrition Start: 03/04/19 09: 31 Text: Status: Complete Freq: Protocol: Document 03/04/19 09:32 JULIANNA (Rec: 03/04/19 10:03 JULIANNA RUSSELL- FNS1) Nutritional Asmnt/Malnutrition Patient General Information Nutritional Screening Low Risk Diagnosis Psychosis Pertinent Medical Hx/Surgical Hx psychosis, non traumatic subdural hemorrhage, seizures, dementia, hypertension, hyperlipidemia, anxiety disorder, schizoaffective disorder, and major depressive disorder. Subjective Information Patient tolerating current diet, no pmhx of diabetes noted. Current Diet Order/ Nutrition Support Soft, 60gm CCHO Patient / S.O Not Indicated Pertinent Medications Lipitor Nutritional Hx/Data Height 4 ft 11 in Height (Calculated Centimeters) 149.9 Current Weight (lbs) 114 lb Weight (Calculated Kilograms) 51.7 Weight (Calculated Grams) 76908.5 [place] Body Weight 97.5 % [place] Body Weight 116 Body Mass Index (BMI) 23.0 Recent Weight Change No Weight Status Approriate GI Symptoms GI Symptoms None Last BM none noted Difficult in: None Food Allergies No Cultural/Ethnic/Moravian Belief none indicated Usual diet at home unknown Skin Integrity/Comment: Kg 19 Current %PO Fair (50-74%) Estimated Nutritional Goals BEE in Kcals: Using Current wt Calories/Kcals/Kg 51.8kg CBW 25-30 kcal/kg Kcals Calculated ~7069-9891 kcal/day Protein: Using Current wt Protein g/k-1.2gm/kg Protein Calculated 50-60gm/day Fluid: ml ~3619-4549 ml/day Nutritional Problem No current Nutrition Prob Problem no nutritino diagnosis at this time Intervention/Recommendation Comments 1. Continue soft diet as tolerated by patient. 2. No noted hx of diabetes in H&P and no POC glucose levels noted. Consider checking glucose levels to determine need for 60gm CCHO diet. Expected Outcomes/Goals Expected Outcomes/Goals Oral intake 75% of meals, weight stable, nutrition related labs WNL F/U LR 03/11
[2019-03-10] MEDS: Multivitamin w/ Minerals Tab PO SCH (08:48)
[2019-03-10] MEDS: CITALOPRAM 10 MG PO SCH (08:48)
[2019-03-11] MEDS: CITALOPRAM 10 MG PO SCH (08:33)
[2019-03-11] MEDS: Multivitamin w/ Minerals Tab PO SCH (08:34)
[2019-03-12] MEDS: Multivitamin w/ Minerals Tab PO SCH (08:50)
[2019-03-12] MEDS: CITALOPRAM 10 MG PO SCH (08:50)
--- NOTE | 2019-03-12 11:48 | Internal Medicine Prog Note ---
Internal Medicine Subjective - Subjective Patient is:: asleep, in bed, confused Patient Complaints of:: other (Hx of Seizures.) Per staff patient has:: no adverse event, no episodes of fall Internal Medicine Objective - Physical Exam Vitals and I&O: Vital Signs Temp 97.1 F 03/12/19 06:33 Pulse 68 03/12/19 08:48 Resp 19 03/12/19 06:33 BP 107/64 03/12/19 08:48 Pulse Ox 97 03/12/19 06:33 Intake & Output 03/11/19 03/12/19 03/12/19 18:59 06:59 18:59 Intake Total 800 360 Balance 800 360 Intake: Oral 800 360 Other: # Voids 3 1 # Bowel Movements 1 Active Medications: Current Medications Acetaminophen (Tylenol Extra Strength) 500 mg PO Q4H PRN PRN Reason: Severe Pain (Scale 7-10) Stop: 04/30/19 09:44 Amlodipine Besylate (Norvasc) 10 mg PO DAILY [facility] Stop: 04/30/19 09:59 Last Admin: 03/12/19 08:48 Dose: Not Given Atorvastatin Calcium (Lipitor) 40 mg PO HS [facility]; Protocol Stop: 04/30/19 20:59 Last Admin: 03/11/19 21:25 Dose: 40 mg Donepezil HCl (Aricept) 10 mg PO [facility] Stop: 04/30/19 20:59 Last Admin: 03/11/19 21:25 Dose: 10 mg Levetiracetam (Keppra) 500 mg PO BID [facility] Stop: 04/30/19 09:59 Last Admin: 03/12/19 08:50 Dose: 500 mg Lorazepam (Ativan) 0.5 mg PO Q4H PRN; Protocol PRN Reason: Anxiety Stop: 05/08/19 19:48 Memantine (Namenda) 10 mg PO BID [facility] Stop: 05/06/19 08:59 Last Admin: 03/12/19 08:50 Dose: 10 mg Miscellaneous (Misc Oral Tab) 1 tab PO DAILY [facility] Stop: 05/01/19 08:59 Last Admin: 03/12/19 08:50 Dose: 1 tab Quetiapine Fumarate (Seroquel) 200 mg PO [facility] Stop: 04/30/19 20:59 Last Admin: 03/11/19 21:25 Dose: 200 mg Quetiapine Fumarate 100 mg/ (Quetiapine Fumarate 25 mg) 125 mg PO BID [facility] Stop: 05/11/19 08:59 Last Admin: 03/12/19 08:50 Dose: 125 mg Zolpidem Tartrate (Ambien) 5 mg PO HS PRN PRN Reason: Insomnia Stop: 05/08/19 19:52 Last Admin: 03/11/19 21:26 Dose: 5 mg General: demented, NAD HEENT: NC/AT, PERRLA Neck: Supple, No JVD Lungs: other (no acute respiratory distress) Cardiovascular: RRR Abdomen: soft, non-tender, non-distended Extremities: excoriation Neurological: no change Internal Medicine Assmt/Plan - Assessment Assessment: Dementia Unspecified psychosis. Seizure disorder HTN Hyperlipidemia - Plan Plan: Continue current treatment plan. Continue current medications Continue to monitor VS Monitor Diet/Nutritional support. Psych management per Psychiatry. Safety precaution, Fall precaution, frequent nursing round. Supportive care. Continue collaborating with consulting specialists, case management and nursing team Nutritional Asmnt/Malnutr-PDOC - Dietary Evaluation Malnutrition Findings (Please click <Entered> for more info): Nutritional Asmnt/Malnutrition Start: 03/04/19 09: 31 Text: Status: Complete Freq: Protocol: Document 03/04/19 09:32 JULIANNA (Rec: 03/04/19 10:03 JULIANNA RUSSELL- FNS1) Nutritional Asmnt/Malnutrition Patient General Information Nutritional Screening Low Risk Diagnosis Psychosis Pertinent Medical Hx/Surgical Hx psychosis, non traumatic subdural hemorrhage, seizures, dementia, hypertension, hyperlipidemia, anxiety disorder, schizoaffective disorder, and major depressive disorder. Subjective Information Patient tolerating current diet, no pmhx of diabetes noted. Current Diet Order/ Nutrition Support Soft, 60gm CCHO Patient / S.O Not Indicated Pertinent Medications Lipitor Nutritional Hx/Data Height 4 ft 11 in Height (Calculated Centimeters) 149.9 Current Weight (lbs) 114 lb Weight (Calculated Kilograms) 51.7 Weight (Calculated Grams) 77943.5 [place] Body Weight 97.5 % [place] Body Weight 116 Body Mass Index (BMI) 23.0 Recent Weight Change No Weight Status Approriate GI Symptoms GI Symptoms None Last BM none noted Difficult in: None Food Allergies No Cultural/Ethnic/Caodaism Belief none indicated Usual diet at home unknown Skin Integrity/Comment: Kg Jay Current %PO Fair (50-74%) Estimated Nutritional Goals BEE in Kcals: Using Current wt Calories/Kcals/Kg 51.8kg CBW 25-30 kcal/kg Kcals Calculated ~5705-8769 kcal/day Protein: Using Current wt Protein g/k-1.2gm/kg Protein Calculated 50-60gm/day Fluid: ml ~4773-9246 ml/day Nutritional Problem No current Nutrition Prob Problem no nutritino diagnosis at this time Intervention/Recommendation Comments 1. Continue soft diet as tolerated by patient. 2. No noted hx of diabetes in H&P and no POC glucose levels noted. Consider checking glucose levels to determine need for 60gm CCHO diet. Expected Outcomes/Goals Expected Outcomes/Goals Oral intake 75% of meals, weight stable, nutrition related labs WNL F/U LR 03/11
--- NOTE | 2019-03-12 20:34 | Progress Notes ---
DATE: 03/09/2019 SUBJECTIVE: Chart reviewed and the patient interviewed. Also discussed the patient's condition with the staff and reviewed records and labs. The patient continues to be forgetful and is still having labile affect. The patient also is still responding and talking to herself. She also still needs lots of redirections. On the other hand, decreased yelling and decreased screaming. ASSESSMENT: The patient is still psychotic, but seems to be less irritable and less agitated. TREATMENT PLAN: Continue to monitor her behavior and her condition closely. Also, Seroquel was increased to 125 mg twice a day and 200 mg at bedtime with no major side effects. We will continue same dose and continue to work on her mood and irritability as well as discharge plans and continue to follow up. JOB# [id number]
--- NOTE | 2019-03-12 20:34 | Progress Notes ---
DATE: SUBJECTIVE: Chart was reviewed and the patient interviewed. Also discussed the patient's condition with the staff and reviewed records and labs. The patient seems to be calmer and seems to be easier to redirect her. The patient also seems to be depressed and stays in her room most of the time. The patient also is interacting minimally with peers and with others. Otherwise, the patient was compliant with taking her medications with no side effects of medications. ASSESSMENT: The patient seems to be less irritable and less agitated and easier to redirect her. TREATMENT PLAN: We will continue to monitor behavior and condition. Also, we will continue Seroquel, Namenda and Aricept at the same dose and we will continue to follow up. [facility]# [id number]
--- NOTE | 2019-03-12 20:34 | Progress Notes ---
DATE: 03/08/2019 Case was discussed with staff of the patient, reviewed records. Covering for Dr. Cabrera. A 78-year-old female admitted on 02/28/2019 The patient has been seen at [facility], has been agitated, verbally abusive with staff, striking out at staff and peers, hallucinating, hearing voices with a history of dementia, psychosis, and depression. The patient continues to have poor insight, unable to make safe plan for self-care, easily agitated, irritable, responding to internal stimuli, and speaking to herself. continues to have mood swings and irritability. No side effects with the medication, no sedation, no nausea, or no extrapyramidal symptoms. She is on Aricept and Seroquel. We will continue outpatient group therapy, milieu therapy, and adjust medication as needed. JOB# [id number] MTDD
--- NOTE | 2019-03-12 20:34 | Progress Notes ---
DATE: SUBJECTIVE: Chart was reviewed and the patient interviewed. Also discussed the patient's condition with the staff and reviewed records and labs. The patient continues to be confused and agitated. The patient also was yelling and cursing in Tagalog language towards the staff. The patient also has been in angry mood and talking to imaginary people in Tagalog language in angry way. She is also resisting care and has difficulty taking her medications, but she did take her medications. ASSESSMENT: The patient still can be dangerous to others and is still extremely agitated. TREATMENT PLAN: We will increase Seroquel to 150 mg twice a day and 200 mg at bedtime. Also, continue working on behavior modification and adjusting psychotropic medications. JOB# [id number]
--- NOTE | 2019-03-12 20:34 | Progress Notes ---
DATE: SUBJECTIVE: Chart was reviewed and the patient interviewed. Also discussed the patient's condition with the staff and reviewed records and labs. The patient is still screaming and yelling. The patient also is still demanding and she is still easily irritable and easily agitated. She also confused and has difficulty following staff directions. Otherwise, the patient continued to comply with taking her medications with no side effects of medications. ASSESSMENT: The patient is still agitated and confused. TREATMENT PLAN: Continue monitoring her behavior and her condition closely. Also, continue Seroquel and Namenda and Aricept same dose and working on behavioral modification. [facility]# [id number]
--- NOTE | 2019-03-12 20:34 | Progress Notes ---
DATE: SUBJECTIVE: Chart was reviewed and the patient interviewed. Also discussed this patient's condition with the staff and reviewed records and labs. The patient had episodes of screaming and yelling for no apparent reason and yesterday, the patient had multiple episodes of yelling and screaming with difficulty following directions. The patient also is still restless and she still has mood swings at times. She also still needs lots of redirections. Otherwise, the patient is compliant with taking her medications with no side effects of medications. ASSESSMENT: The patient is still agitated and is still psychotic. TREATMENT PLAN: We will increase Seroquel to 125 mg twice a day and ____ mg at bedtime. Also, we will increase Namenda to 10 mg twice a day, hopefully also that will help with her irritability and with her difficulty following directions. At the same time, we will continue to follow up and we will continue to work on her agitation and her irritability. JOB# [id number]
--- NOTE | 2019-03-12 20:35 | Progress Notes ---
DATE: 03/11/2019 SUBJECTIVE: The patient was seen and evaluated. The patient's chart was reviewed. Covering for Dr. Cabrera. Nursing staff reported that patient mostly has been isolative, withdrawn, and disengaged in the interview room. Today on [id number]-[id number] evaluation, the patient is refusing, at times just stares blankly for avoidance. CURRENT MEDICATION RECONCILIATION: Reviewed and includes the Aricept 10 mg a day, Keppra, Namenda 10 mg p.o. b.i.d., and Seroquel 200 mg at nighttime and 150 mg p.o. t.i.d. ASSESSMENT AND PLAN: The patient is with a history of schizophrenia, who continues to be easily agitated, responding nicely, withdrawn. We will continue with primary psychiatrist's treatment plan and goals. JOB# [id number]
--- NOTE | 2019-03-12 20:35 | Progress Notes ---
DATE: 03/11/2019 SUBJECTIVE: The patient was seen in her room. The patient is asleep, but easily arousable. The patient is very confused, easily gets frustrated and agitated and needs a lot of redirection, has episodes of aggressive behavior. Otherwise, the patient appears to be in no acute distress. OBJECTIVE: VITAL SIGNS: Temperature of 97.9, heart rate of 84, blood pressure 141/69, respiration of 19, 99% on room air. HEENT: Head is atraumatic and normocephalic. Eyes: Bilateral conjunctivae are clear. Bilateral pupils are equally round and reactive. NECK: Supple. No JVD. CARDIOVASCULAR: S1 and S2, without murmur. PULMONARY: Clear to auscultation. GASTROINTESTINAL: Soft and nontender without guarding. Positive bowel sounds. MUSCULOSKELETAL: No clubbing, no cyanosis noted. ASSESSMENT: 1. Dementia. 2. Seizure disorder. 3. Hypertension. 4. Hyperlipidemia. PLAN: We will continue to keep the patient inpatient to Psychiatric Unit. We will follow up with a psychiatrist to monitor the patient's condition and behavior. We will put the patient on seizure precautions and fall precaution. Treatment plans were discussed with the patient's nurse. Treatment plans were discussed with Dr. Conner. JOB# [id number]
--- NOTE | 2019-03-12 22:44 | Progress Notes ---
DATE: 03/12/2019 SUBJECTIVE: The patient was seen and evaluated. The patient's chart reviewed. Covering for Dr. Cabrera. Overnight, the patient had been sleeping all day, slightly oversedated. Family is also concerned about sedation and they expressed concerns about reducing the medication. Today on [id number] evaluation, the patient is a little more calm. No aggression, no agitation, no assaultive behavior demonstrated. MENTAL STATUS EXAMINATION: Irritability is noted, although calmer and engaging. ASSESSMENT AND PLAN: ____ 78-year-old female who demonstrated good improvement with the current medication regimen. We will reduce the dose as following: Seroquel from 150 p.o. b.i.d. to 125 p.o. b.i.d. and keep the dose at 200 mg at nighttime ____ physician. She is tolerating medications well ____ monitor for any changes in behavior. [facility]# [id number]
[2019-03-13] MEDS: Multivitamin w/ Minerals Tab PO SCH (09:24)
[2019-03-13] MEDS: CITALOPRAM 10 MG PO SCH (09:46)
--- NOTE | 2019-03-13 21:01 | Progress Notes ---
DATE: 03/13/2019 SUBJECTIVE: The patient in the hospital, not a very good historian. When I asked her why she is here, she states, "I have a lot of problems." Gets irritable, upset. "Stop asking me so many questions," noted to be still impulsive, unpredictable, ongoing safety concerns. Per mental health social worker, the patient coming from [facility]. She has a bed hold. Ongoing anxiety, withdrawn, unpredictable. Medications were reviewed. Ongoing symptoms, irritability. PLAN: We will continue dosing of medication. JOB# [id number]
[2019-03-14] MEDS: Multivitamin w/ Minerals Tab PO SCH (08:45)
[2019-03-14] MEDS: CITALOPRAM 10 MG PO SCH (08:45)
--- NOTE | 2019-03-14 09:56 | Internal Medicine Prog Note ---
Internal Medicine Subjective - Subjective Patient is:: awake, verbal, confused, other (in toilet) Patient Complaints of:: other (Hx of Seizures.) Per staff patient has:: no adverse event, no episodes of fall Internal Medicine Objective - Physical Exam Vitals and I&O: Vital Signs Temp 98.4 F 03/14/19 06:26 Pulse 71 03/14/19 08:45 Resp 19 03/14/19 07:53 BP 114/69 03/14/19 08:45 Pulse Ox 96 03/14/19 06:26 Intake & Output 03/13/19 03/14/19 03/14/19 18:59 06:59 18:59 Intake Total 900 240 Balance 900 240 Intake: Oral 900 240 Other: # Voids 4 1 # Bowel Movements 1 Active Medications: Current Medications Acetaminophen (Tylenol Extra Strength) 500 mg PO Q4H PRN PRN Reason: Severe Pain (Scale 7-10) Stop: 04/30/19 09:44 Amlodipine Besylate (Norvasc) 10 mg PO DAILY [facility] Stop: 04/30/19 09:59 Last Admin: 03/14/19 08:45 Dose: 10 mg Atorvastatin Calcium (Lipitor) 40 mg PO HS [facility]; Protocol Stop: 04/30/19 20:59 Last Admin: 03/13/19 20:44 Dose: 40 mg Donepezil HCl (Aricept) 10 mg PO [facility] Stop: 04/30/19 20:59 Last Admin: 03/13/19 20:44 Dose: 10 mg Levetiracetam (Keppra) 500 mg PO BID [facility] Stop: 04/30/19 09:59 Last Admin: 03/14/19 08:45 Dose: 500 mg Lorazepam (Ativan) 0.5 mg PO Q4H PRN; Protocol PRN Reason: Anxiety Stop: 05/08/19 19:48 Memantine (Namenda) 10 mg PO BID [facility] Stop: 05/06/19 08:59 Last Admin: 03/14/19 08:45 Dose: 10 mg Miscellaneous (Misc Oral Tab) 1 tab PO DAILY [facility] Stop: 05/01/19 08:59 Last Admin: 03/14/19 08:45 Dose: 1 tab Quetiapine Fumarate (Seroquel) 200 mg PO HS [facility] Stop: 04/30/19 20:59 Last Admin: 03/13/19 20:44 Dose: 200 mg Quetiapine Fumarate 100 mg/ (Quetiapine Fumarate 25 mg) 125 mg PO BID [facility] Stop: 05/11/19 08:59 Last Admin: 03/14/19 08:45 Dose: 125 mg Zolpidem Tartrate (Ambien) 5 mg PO HS PRN PRN Reason: Insomnia Stop: 05/08/19 19:52 Last Admin: 03/13/19 20:44 Dose: 5 mg General: demented, NAD HEENT: NC/AT, PERRLA Neck: Supple, No JVD Lungs: other (no acute respiratory distress) Cardiovascular: RRR Abdomen: soft, non-tender, non-distended Extremities: excoriation Neurological: no change Internal Medicine Assmt/Plan - Assessment Assessment: Dementia Unspecified psychosis. Seizure disorder HTN Hyperlipidemia - Plan Plan: Continue current treatment plan. Continue current medications Continue to monitor VS Monitor Diet/Nutritional support. Psych management per Psychiatry. Safety precaution, Fall precaution, frequent nursing round. Supportive care. Continue collaborating with consulting specialists, case management and nursing team Nutritional Asmnt/Malnutr-PDOC - Dietary Evaluation Malnutrition Findings (Please click <Entered> for more info): Nutritional Asmnt/Malnutrition Start: 03/04/19 09: 31 Text: Status: Complete Freq: Protocol: Document 03/04/19 09:32 JULIANNA (Rec: 03/04/19 10:03 JULIANNA RUSSELL- FNS1) Nutritional Asmnt/Malnutrition Patient General Information Nutritional Screening Low Risk Diagnosis Psychosis Pertinent Medical Hx/Surgical Hx psychosis, non traumatic subdural hemorrhage, seizures, dementia, hypertension, hyperlipidemia, anxiety disorder, schizoaffective disorder, and major depressive disorder. Subjective Information Patient tolerating current diet, no pmhx of diabetes noted. Current Diet Order/ Nutrition Support Soft, 60gm CCHO Patient / S.O Not Indicated Pertinent Medications Lipitor Nutritional Hx/Data Height 4 ft 11 in Height (Calculated Centimeters) 149.9 Current Weight (lbs) 114 lb Weight (Calculated Kilograms) 51.7 Weight (Calculated Grams) 82563.5 [place] Body Weight 97.5 % [place] Body Weight 116 Body Mass Index (BMI) 23.0 Recent Weight Change No Weight Status Approriate GI Symptoms GI Symptoms None Last BM none noted Difficult in: None Food Allergies No Cultural/Ethnic/Episcopal Belief none indicated Usual diet at home unknown Skin Integrity/Comment: Kg Jay Current %PO Fair (50-74%) Estimated Nutritional Goals BEE in Kcals: Using Current wt Calories/Kcals/Kg 51.8kg CBW 25-30 kcal/kg Kcals Calculated ~6365-2634 kcal/day Protein: Using Current wt Protein g/k-1.2gm/kg Protein Calculated 50-60gm/day Fluid: ml ~9739-0674 ml/day Nutritional Problem No current Nutrition Prob Problem no nutritino diagnosis at this time Intervention/Recommendation Comments 1. Continue soft diet as tolerated by patient. 2. No noted hx of diabetes in H&P and no POC glucose levels noted. Consider checking glucose levels to determine need for 60gm CCHO diet. Expected Outcomes/Goals Expected Outcomes/Goals Oral intake 75% of meals, weight stable, nutrition related labs WNL F/U LR 03/11
--- NOTE | 2019-03-14 22:19 | Progress Notes ---
DATE: 03/14/2019 SUBJECTIVE: This 78-year-old female is admitted to the hospital currently from [facility]. The patient is very confused on exam, not really able to at all follow along during the interview, disoriented, disorganized, irritable, asking to leave. Recent dose reduction of medications noted by Dr. Watters. Concerns were oversedation. The patient is not oversedated right now. She is awake and alert, just ongoing irritability. Per nursing staff, episodes of hallucinations and delusions, but no outbursts, very forgetful, sometimes agitated, making some nonsensical statements, talking about kids around her. PLAN: We will continue to monitor. Monitor for any oversedation. [facility]# [id number]
--- NOTE | 2019-03-15 07:26 | Progress Notes ---
DATE: 03/15/2019 SUBJECTIVE: The patient in the hospital, coming from [facility]. She remains pretty confused on exam, irritable, not wanting to really engage with me. Difficult to assess fully. Per staff, the patient is forgetful, confused, unable to make her needs known, but does not want to talk to me and ask me to leave. "What you want, go away". We will continue to monitor. Medications were reviewed. JOB# [id number]
[2019-03-15] MEDS: Multivitamin w/ Minerals Tab PO SCH (09:30)
[2019-03-15] MEDS: CITALOPRAM 10 MG PO SCH (09:44)
--- NOTE | 2019-03-15 12:17 | Internal Medicine Prog Note ---
Internal Medicine Subjective - Subjective Patient is:: awake, asleep, in bed, confused, other (in toilet) Patient Complaints of:: other (Hx of Seizures.) Per staff patient has:: no adverse event, no episodes of fall Internal Medicine Objective - Physical Exam Vitals and I&O: Vital Signs Temp 98.8 F 03/15/19 05:28 Pulse 75 03/15/19 09:31 Resp 18 03/15/19 05:28 BP 94/67 03/15/19 09:31 Pulse Ox 98 03/15/19 05:28 Intake & Output 03/14/19 03/15/19 03/15/19 18:59 06:59 18:59 Intake Total 850 120 Balance 850 120 Intake: Oral 850 120 Other: # Voids 4 3 # Bowel Movements 1 0 Active Medications: Current Medications Acetaminophen (Tylenol Extra Strength) 500 mg PO Q4H PRN PRN Reason: Severe Pain (Scale 7-10) Stop: 04/30/19 09:44 Amlodipine Besylate (Norvasc) 10 mg PO DAILY [facility] Stop: 04/30/19 09:59 Last Admin: 03/15/19 09:31 Dose: Not Given Atorvastatin Calcium (Lipitor) 40 mg PO [facility]; Protocol Stop: 04/30/19 20:59 Last Admin: 03/14/19 20:30 Dose: 40 mg Donepezil HCl (Aricept) 10 mg PO [facility] Stop: 04/30/19 20:59 Last Admin: 03/14/19 20:32 Dose: 10 mg Levetiracetam (Keppra) 500 mg PO BID [facility] Stop: 04/30/19 09:59 Last Admin: 03/15/19 09:30 Dose: 500 mg Lorazepam (Ativan) 0.5 mg PO Q4H PRN; Protocol PRN Reason: Anxiety Stop: 05/08/19 19:48 Memantine (Namenda) 10 mg PO BID [facility] Stop: 05/06/19 08:59 Last Admin: 03/15/19 09:30 Dose: 10 mg Miscellaneous (Misc Oral Tab) 1 tab PO DAILY [facility] Stop: 05/01/19 08:59 Last Admin: 03/14/19 08:45 Dose: 1 tab Quetiapine Fumarate (Seroquel) 200 mg PO [facility] Stop: 04/30/19 20:59 Last Admin: 03/14/19 20:31 Dose: 200 mg Quetiapine Fumarate 100 mg/ (Quetiapine Fumarate 25 mg) 125 mg PO BID [facility] Stop: 05/11/19 08:59 Last Admin: 03/15/19 09:30 Dose: 125 mg Zolpidem Tartrate (Ambien) 5 mg PO HS PRN PRN Reason: Insomnia Stop: 05/08/19 19:52 Last Admin: 03/14/19 20:31 Dose: 5 mg General: demented, NAD, other (sleeping but arousable) HEENT: NC/AT, PERRLA Neck: Supple, No JVD Lungs: other (no acute respiratory distress) Cardiovascular: RRR Abdomen: soft, non-tender, non-distended Extremities: excoriation Neurological: no change Internal Medicine Assmt/Plan - Assessment Assessment: Dementia Unspecified psychosis. Seizure disorder HTN Hyperlipidemia - Plan Plan: Continue current treatment plan. Continue current medications Continue to monitor VS Monitor Diet/Nutritional support. Psych management per Psychiatry. Safety precaution, Fall precaution, frequent nursing round. Supportive care. Continue collaborating with consulting specialists, case management and nursing team Nutritional Asmnt/Malnutr-PDOC - Dietary Evaluation Malnutrition Findings (Please click <Entered> for more info): Nutritional Asmnt/Malnutrition Start: 03/04/19 09: 31 Text: Status: Complete Freq: Protocol: Document 03/04/19 09:32 JULIANNA (Rec: 03/04/19 10:03 JULIANNA RUSSELL- [id number]) Nutritional Asmnt/Malnutrition Patient General Information Nutritional Screening Low Risk Diagnosis Psychosis Pertinent Medical Hx/Surgical Hx psychosis, non traumatic subdural hemorrhage, seizures, dementia, hypertension, hyperlipidemia, anxiety disorder, schizoaffective disorder, and major depressive disorder. Subjective Information Patient tolerating current diet, no pmhx of diabetes noted. Current Diet Order/ Nutrition Support Soft, 60gm CCHO Patient / S.O Not Indicated Pertinent Medications Lipitor Nutritional Hx/Data Height 4 ft 11 in Height (Calculated Centimeters) 149.9 Current Weight (lbs) 114 lb Weight (Calculated Kilograms) 51.7 Weight (Calculated Grams) 91164.5 [place] Body Weight 97.5 % [place] Body Weight 116 Body Mass Index (BMI) 23.0 Recent Weight Change No Weight Status Approriate GI Symptoms GI Symptoms None Last BM none noted Difficult in: None Food Allergies No Cultural/Ethnic/Pentecostal Belief none indicated Usual diet at home unknown Skin Integrity/Comment: Kg 19 Current %PO Fair (50-74%) Estimated Nutritional Goals BEE in Kcals: Using Current wt Calories/Kcals/Kg 51.8kg CBW 25-30 kcal/kg Kcals Calculated ~8749-3531 kcal/day Protein: Using Current wt Protein g/k-1.2gm/kg Protein Calculated 50-60gm/day Fluid: ml ~3406-7514 ml/day Nutritional Problem No current Nutrition Prob Problem no nutritino diagnosis at this time Intervention/Recommendation Comments 1. Continue soft diet as tolerated by patient. 2. No noted hx of diabetes in H&P and no POC glucose levels noted. Consider checking glucose levels to determine need for 60gm CCHO diet. Expected Outcomes/Goals Expected Outcomes/Goals Oral intake 75% of meals, weight stable, nutrition related labs WNL F/U LR 03/11
[2019-03-16] MEDS: CITALOPRAM 10 MG PO SCH (08:04)
[2019-03-16] MEDS: Multivitamin w/ Minerals Tab PO SCH (08:05)
--- NOTE | 2019-03-16 17:04 | Internal Medicine Prog Note ---
Internal Medicine Subjective - Subjective Service Date: 03/16/19 Patient is:: awake, asleep, in bed, confused, other (in toilet) Patient Complaints of:: other (Hx of Seizures.) Per staff patient has:: no adverse event, no episodes of fall Internal Medicine Objective - Physical Exam Vitals and I&O: Vital Signs Temp 98.0 F 03/16/19 14:00 Pulse 71 03/16/19 14:00 Resp 20 03/16/19 14:00 BP 116/67 03/16/19 14:00 Pulse Ox 97 03/16/19 14:00 Intake & Output 03/15/19 03/16/19 03/16/19 18:59 06:59 18:59 Intake Total 1080 120 Balance 1080 120 Intake: Oral 960 120 Other 120 Other: # Voids 3 1 # Bowel Movements 1 0 Active Medications: Current Medications Acetaminophen (Tylenol Extra Strength) 500 mg PO Q4H PRN PRN Reason: Severe Pain (Scale 7-10) Stop: 04/30/19 09:44 Amlodipine Besylate (Norvasc) 10 mg PO DAILY [facility] Stop: 04/30/19 09:59 Last Admin: 03/16/19 08:04 Dose: 10 mg Atorvastatin Calcium (Lipitor) 40 mg PO [facility]; Protocol Stop: 04/30/19 20:59 Last Admin: 03/15/19 20:28 Dose: 40 mg Donepezil HCl (Aricept) 10 mg PO [facility] Stop: 04/30/19 20:59 Last Admin: 03/15/19 20:29 Dose: 10 mg Levetiracetam (Keppra) 500 mg PO BID [facility] Stop: 04/30/19 09:59 Last Admin: 03/16/19 16:35 Dose: 500 mg Lorazepam (Ativan) 0.5 mg PO Q4H PRN; Protocol PRN Reason: Anxiety Stop: 05/08/19 19:48 Memantine (Namenda) 10 mg PO BID [facility] Stop: 05/06/19 08:59 Last Admin: 03/16/19 16:35 Dose: 10 mg Miscellaneous (Misc Oral Tab) 1 tab PO DAILY [facility] Stop: 05/01/19 08:59 Last Admin: 03/16/19 08:04 Dose: 1 tab Quetiapine Fumarate (Seroquel) 200 mg PO [facility] Stop: 04/30/19 20:59 Last Admin: 03/15/19 20:29 Dose: 200 mg Quetiapine Fumarate 100 mg/ (Quetiapine Fumarate 25 mg) 125 mg PO BID [facility] Stop: 05/11/19 08:59 Last Admin: 03/16/19 16:36 Dose: 125 mg Zolpidem Tartrate (Ambien) 5 mg PO HS PRN PRN Reason: Insomnia Stop: 05/08/19 19:52 Last Admin: 03/14/19 20:31 Dose: 5 mg General: demented, NAD, other (sleeping but arousable) HEENT: NC/AT, PERRLA Neck: Supple, No JVD Lungs: other (no acute respiratory distress) Cardiovascular: RRR Abdomen: soft, non-tender, non-distended Extremities: excoriation Neurological: no change Internal Medicine Assmt/Plan - Assessment Assessment: Unspecified psychosis. history of Seizure disorder. Dementia. Hypertension. History of Hyperlipidemia. - Plan Plan: Psych management as per Psych. Continue present meds as directed. Monitor diet and nutritional support. Supportive care. Monitor vitals and labs. Continue current treatment plan as ordered. Nutritional Asmnt/Malnutr-PDOC - Dietary Evaluation Malnutrition Findings (Please click <Entered> for more info): Nutritional Asmnt/Malnutrition Start: 03/04/19 09: 31 Text: Status: Complete Freq: Protocol: Document 03/04/19 09:32 JULIANNA (Rec: 03/04/19 10:03 JULIANNA RUSSELL- [id number]) Nutritional Asmnt/Malnutrition Patient General Information Nutritional Screening Low Risk Diagnosis Psychosis Pertinent Medical Hx/Surgical Hx psychosis, non traumatic subdural hemorrhage, seizures, dementia, hypertension, hyperlipidemia, anxiety disorder, schizoaffective disorder, and major depressive disorder. Subjective Information Patient tolerating current diet, no pmhx of diabetes noted. Current Diet Order/ Nutrition Support Soft, 60gm CCHO Patient / S.O Not Indicated Pertinent Medications Lipitor Nutritional Hx/Data Height 4 ft 11 in Height (Calculated Centimeters) 149.9 Current Weight (lbs) 114 lb Weight (Calculated Kilograms) 51.7 Weight (Calculated Grams) 67124.5 [place] Body Weight 97.5 % [place] Body Weight 116 Body Mass Index (BMI) 23.0 Recent Weight Change No Weight Status Approriate GI Symptoms GI Symptoms None Last BM none noted Difficult in: None Food Allergies No Cultural/Ethnic/Moravian Belief none indicated Usual diet at home unknown Skin Integrity/Comment: Kg 19 Current %PO Fair (50-74%) Estimated Nutritional Goals BEE in Kcals: Using Current wt Calories/Kcals/Kg 51.8kg CBW 25-30 kcal/kg Kcals Calculated ~1409-2684 kcal/day Protein: Using Current wt Protein g/k-1.2gm/kg Protein Calculated 50-60gm/day Fluid: ml ~6634-9129 ml/day Nutritional Problem No current Nutrition Prob Problem no nutritino diagnosis at this time Intervention/Recommendation Comments 1. Continue soft diet as tolerated by patient. 2. No noted hx of diabetes in H&P and no POC glucose levels noted. Consider checking glucose levels to determine need for 60gm CCHO diet. Expected Outcomes/Goals Expected Outcomes/Goals Oral intake 75% of meals, weight stable, nutrition related labs WNL F/U LR 03/11
--- NOTE | 2019-03-16 21:06 | Progress Notes ---
DATE: 03/16/2019 SUBJECTIVE: The patient in the hospital. The patient is coming from [facility], confused, forgetful, labile, still mumbling to self, talking to self. No agitation. No overt escalation of behaviors, is likely she is approaching her baseline, still needing some prompting, still calling up family members, cursing, yelling at times, but these symptoms seem to be less, currently on dosing of Seroquel, taking 125 twice daily and 200 mg at night. PLAN: We will continue to monitor for further 24-48 hours. JOB# [id number]
[2019-03-17] MEDS: Multivitamin w/ Minerals Tab PO SCH (08:48)
[2019-03-17] MEDS: CITALOPRAM 10 MG PO SCH (08:48)
--- NOTE | 2019-03-17 16:02 | Progress Notes ---
DATE: 03/17/2019 SUBJECTIVE: The patient seen, chart reviewed, discussed with staff. Remains confused, disoriented, but calm, still with some yelling episodes, but much less. Seems to be showing some signs of improvement, at her baseline, redirectable. Vitals were noted, seems to be tolerant to medications thus far. No SI, no HI. No aggressive behaviors. I will discharge today, full discharge summary by Dr. Cabrera, is to follow up. JOB# [id number]
== END 2019-03-17 14:30 | DRG 885 ==
LOC: GERO 20:30
PROVIDERS: ADMIT Psychiatry & Neurology Psychiatry; ATTEND Psychiatry & Neurology Psychiatry
DX: F29 Unspecified psychosis not due to a substance or known physiological condition (principal); F03.91 Unspecified dementia, unspecified severity, with behavioral disturbance; E78.5 Hyperlipidemia, unspecified; I10 Essential (primary) hypertension; G40.909 Epilepsy, unspecified, not intractable, without status epilepticus
CPT/HCPCS: 83036-90; Z7610